=== PATIENT | female | born 1985 | race Caucasian/White ===

== ENCOUNTER 2016-11-30 11:59 | Emergency (ER) | payer OTHER ==
[~2016-11-30] VITALS: Ht 177.8 cm; Wt 94.3 kg
[2016-11-30 12:28] LABS: ABSOLUTE BASOPHIL COUNT 0 /CUMM (0.0-0.2); ABSOLUTE EOSINOPHIL COUNT 0 /CUMM (0.0-0.7); ABSOLUTE GRANULOCYTE CT 9.4 /CUMM (1.4-6.5); ABSOLUTE LYMPH COUNT 0.4 /CUMM (1.2-3.4); ABSOLUTE MONOCYTE COUNT 0.5 /CUMM (0.10-0.60); BASOPHIL % 0.1 % (0.0-2.0); EOSINOPHIL % 0.2 % (0-5); MEAN CORPUSCULAR HGB 30.5 PG (27.0-31.0); MEAN CORPUSCULAR HGB CONC 34.6 G/DL (33.0-37.0); MEAN CORPUSCULAR VOLUME 87.9 FL (81.0-99.0); MEAN PLATELET VOLUME 7.8 FL (7.4-10.4); PLATELET COUNT 223 /CUMM (130-400); RBC DISTRIBUTION WIDTH 12.5 % (11.5-14.5); RED BLOOD CELL CT 4.67 /CUMM (4.20-5.40); WHITE BLOOD CELL COUNT 10.4 /CUMM (4.8-10.8)
--- NOTE | 2016-11-30 12:48 | ED GI/GU/ABDOMINAL COMPLAINT ---
History of Present Illness General Chief Complaint: Nausea, Vomiting, Diarrhea Stated Complaint: N/V/D ABDOMINAL PAIN Source: patient, family (mother) Exam Limitations: no limitations Vital Signs & Intake/Output Vital Signs & Intake/Output Vital Signs Date Time Temp Pulse Resp B/P Pulse O2 O2 Flow FiO2 Ox Delivery Rate 11/30 1435 100.6 104 18 106/51 98 Room Air 11/30 1206 99.3 116 18 110/80 98 Room Air Allergies Coded Allergies: No Known Allergies (11/30/16) Reconcile Medications No Known Home Medications Triage Note: 31 AND N/V/D SINCE 0600. STATES SHE HAS VOMITED MORE THAN TEN TIMES SINCE THIS AM. WAS EVAL'D AT [facility] AND RECEIVED IM ZOFRAN (AROUND 1030) WITH NO RELIEF OF SYMPTOMS. AFEBRILE. LAST MENSES LAST WEEK AND "NORMAL" PER PT. Triage Nurses Notes Reviewed? yes ? n Is pt currently ? No Onset: Abrupt Duration: hour(s): (7), constant Timing: recent history Quality/Severity: aching, cramping Severity Numbers: 6 Location: generalized abdomen Radiation: no radiation Activities at Onset: none Prior Abdominal Problems: none Modifying Factors: Worsens With: eating. Associated Symptoms: denies HPI: 31-year-old female with history of lumbar fusion presents to emergency room complaining of multiple episodes of nausea vomiting diarrhea since 6:00 this morning associated generalized crampy abdominal pain that comes on prior to diarrhea or vomiting. She went to an urgent care this morning and was given an IM injection of Zofran without improvement. She denies hematemesis black or bloody stools or fever no chills no cough sore throat and rhinorrhea. She denies any sick contacts recent travel. Symptoms are worse with attempted eating or drinking better at rest there are no other modifying factors or associated symptoms. Patient denies recent alcohol use (JANA BENSON) Past History Travel History Traveled to [place] past 21 day No Medical History Any Pertinent Medical History? 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 No (JANA BENSON) Review of Systems Review of Systems Constitutional: Reports: see HPI. All Other Systems: Reviewed and Negative Comments Review of systems: See HPI, All other systems negative. Constitutional, no chills no fever, no malaise HEENT: No visual changes no sore throat no congestion, Cardiovascular: No chest pain , no palpitation Skin, no jaundice no rashes, no change in skin Respiratory: No dyspnea no cough no sputum GI:nauseavomiting, diarrhea, no bloating/constipation : No dysuria No hematuria, no frequency, no discharge Muscle skeletal: No joint pain, no joint swelling, no back pain, no neck pain, Neurologic: No numbness nno headache Psych: No stress Heme/endocrine: No bruising no bleeding Immunology: No lymphadenopathy, (JANA BENSON) Physical Exam Physical Exam General Appearance: well developed/nourished, alert, awake Gastrointestinal: normal bowel sounds, soft, non-tender Comments: Well-developed well-nourished person in no acute distress HEENT: Normal EENT exam; PERRL, EOMI. HEAD is atraumatic. moist mucous membranes. Neck: Supple, normal range of motion Back: Nontender, no CVA tenderness. Full range of motion Cardiovascular: Regular rate and rhythms no murmurs rubs Respiratory: No respiratory distress. Patient speaking in full complete sentences. Breath sounds clear to auscultation bilaterally: NO W/R/R Abdomen: Soft, nontender nondistended, no appreciable organomegaly. Normal bowel sounds. No rebound/guarding, or is no right lower quadrant or right upper quadrant tenderness to palpation Extremity: No edema, full range of motion of extremities, Neuro: Alert oriented x3, motor sensory normal, There were no obvious focal neurologic abnormalities. Skin: No appreciable rash on exposed skin, skin is warm and dry. Psych: Mood and affect is normal, memory and judgment is normal. Core Measures ACS in differential dx? No Severe Sepsis Present: No Septic Shock Present: No (JANA BENSON) Progress Differential Diagnosis: appendicitis, biliary colic, bowel obstruction, colon cancer, cholecystitis, ectopic , gastritis, hepatitis, hernia, inflamm bowel dis, intrauterine , kidney stone, ovarian cyst, pancreatitis, peptic ulcer, PUD/GERD, perforated viscous Plan of Care: Orders Procedure Date/time Status Add-on Test (ER Only) 11/30 1305 Active HUMAN BETA HCG SCREEN 11/30 121 Complete CULTURE,URINE 11/30 121 Active URINALYSIS 11/30 1210 Complete LACTIC ACID 11/30 1210 Complete COMPREHENSIVE METABOLIC PANEL 11/30 1210 Complete CBC WITHOUT DIFFERENTIAL 11/30 1210 Complete Laboratory Tests 11/30/16 1511: Lactic Acid Cancelled 11/30/16 1355: Urinalysis LIGHT H, Urine Color YEL, Urine Clarity HAZY H, Urine pH 7.5, Ur Specific [place] 1.020, Urine Protein TRACE H, Urine Ketones NEG, Urine Nitrite NEG, Urine Bilirubin NEG, Urine Urobilinogen 0.2, Ur Leukocyte Esterase NEG, Ur Microscopic SEDIMENT EXAMINED, Ur Epithelial Cells MOD H, Urine Hemoglobin NEG, Urine Glucose NEG 11/30/16 1219: Anion Gap 10, Estimated GFR > 60, BUN/Creatinine Ratio 26.3 H, Glucose 107 H, Lactic Acid 2.5 H, Calcium 9.0, Total Bilirubin 0.9, AST 18, ALT 25, Alkaline Phosphatase 55, Total Protein 7.1, Albumin 3.9, Globulin 3.2, Albumin/Globulin Ratio 1.2, Total Beta HCG NEGATIVE, CBC w Diff NO MAN DIFF REQ, RBC 4.67, MCV 87.9, MCH 30.5, RDW 12.5, MPV 7.8, Gran % 90.8 H, Lymphocytes % 4.1 L, Monocytes % 4.8, Eosinophils % 0.2, Basophils % 0.1, Absolute Granulocytes 9.4 H, Absolute Lymphocytes 0.4 L, Absolute Monocytes 0.5, Absolute Eosinophils 0, Absolute Basophils 0, PUBS MCHC 34.6 Microbiology 11/30 1355 URINE ROUT: Urine Culture - RECD Labs ordered old records reviewed patient medicated Zofran for Toradol 30 Pepcid 20 11/30/2016 2:04:35 PM on repeat evaluation patient reports her symptoms have improved patient clinically appears much better tolerating by mouth challenge she's had no episodes of vomiting here in the department we will continue to monitor, I discussed with her at least and her mother all of her lab results to date, that I do not believe the patient requires any imaging at this time given her lab results and she is feeling improved. The patient's mother is a nurse and she states that she does agree as well the abdomen is soft nontender and remained so on repeat evaluation there is no rebound or guarding Patient feels improved she has Zofran at home which was provided from the urgent care earlier this morning advised bland diet clear liquids advance as tolerated advised return anytime sooner with any concerns she feels comfortable plan cleared for discharge (JANA BENSON) Initial ED EKG: none (JANA BENSON) Departure Departure Time of Disposition: 1354 Disposition: HOME OR SELF CARE Condition: Stable Clinical Impression Primary Impression: Nausea & vomiting Referrals: TARSHA TOLENTINO MD (PCP/Family) Additional Instructions: [place] diet clear liquids. Zofran as needed for nausea. Advance diet as tolerated. Return to emergency room at anytime sooner with any concerns Departure Forms: Customer Survey General Discharge Information Prescriptions: Current Visit Scripts No Known Home Medications (JANA BENSON) PA/[employer] Co-Sign Statement Statement: ED Attending supervision documentation- [] I saw and evaluated the patient. I have also reviewed all the pertinent lab results and diagnostic results. I agree with the findings and the plan of care as documented in the PA's/[employer]'s documentation. [X] I have reviewed the ED Record and agree with the PA's/[employer]'s documentation. [] Additions or exceptions (if any) to the PAs/[employer]'s note and plan are summarized below: [] (LINN SWARTZ DO
[2016-11-30 12:50] LABS: GRANULOCYTE % 90.8 % (42.2-75.2)
[2016-11-30 14:35] VITALS: BP 106/51
== END 2016-11-30 14:48 ==
LOC: ERH 11:59
PROVIDERS: Emergency Medicine
DX: R11.2 Nausea with vomiting, unspecified (principal); R10.84 Generalized abdominal pain
CPT/HCPCS: 81001; 81025; 87086; 96374; 96375; J1885; J2405